=== PATIENT | male | born 1985 | race Caucasian/White ===

== ENCOUNTER 2020-01-03 15:35 | Emergency (ER) | payer OTHER ==
[~2020-01-03] VITALS: Ht 182.9 cm; Wt 65.8 kg
--- NOTE | 2020-01-03 16:35 | NUR ---
PT KRISTEN C/O R HIP PAIN 12/12. STATES THAT ITS BEEN HARD TO MOVE AROUND. VS CHECKED. AWAITING MD GOMEZ.
[2020-01-03] MEDS ORDERED: MORPHINE SULFATE INJ 2 MG/ML DISP.SYRIN IM ONE (17:00)
[2020-01-03] MEDS ORDERED: ONDANSETRON 4 MG TAB.RAPDIS SL ONE (17:00)
[2020-01-03] MEDS ORDERED: ONDANSETRON 4 MG TAB.RAPDIS ONE (17:12)
[2020-01-03] MEDS ORDERED: MORPHINE SULFATE INJ 2 MG/ML DISP.SYRIN ONE (17:12)
--- NOTE | 2020-01-03 17:38 | NUR ---
PT BACK FROM CT
[2020-01-03] MEDS ORDERED: oxyCODONE/APAP (5/325 MG) 1 UDTAB TABLET PO ONE (18:30)
[2020-01-03] MEDS ORDERED: IBUPROFEN 600 MG TABLET PO ONE (18:30)
[2020-01-03] MEDS ORDERED: IBUPROFEN 600 MG TABLET ONE (18:40)
[2020-01-03] MEDS ORDERED: oxyCODONE/APAP (5/325 MG) 1 UDTAB TABLET ONE (18:40)
--- NOTE | 2020-01-03 19:40 | NUR ---
Patient discharged to home in stable condition. Written and verbal after care instructions given. Patient verbalizes understanding of instruction.
--- NOTE | 2020-01-03 19:40 | NUR ---
FAMILY MEMBERS (MOM AND DAD) AT WAITING ROOM TO PICK PATIENT UP.
[2020-01-04 02:49] VITALS: BP 112/81
== END 2020-01-03 19:40 | disposition home or self-care (01) ==
LOC: ER 15:41
DX: S39.012A Strain of muscle, fascia and tendon of lower back, initial encounter (principal); S00.03XA Contusion of scalp, initial encounter; S60.512A Abrasion of left hand, initial encounter; S60.511A Abrasion of right hand, initial encounter; S00.81XA Abrasion of other part of head, initial encounter; M25.551 Pain in right hip; V49.49XA Driver injured in collision with other motor vehicles in traffic accident, initial encounter; Y93.89 Activity, other specified; Y92.413 State road as the place of occurrence of the external cause; Y99.8 Other external cause status
CPT/HCPCS: 70450; 72125; 72131; 73700; 96372; 99285; J2270; Q0162